=== PATIENT | female | born 1935 | race Caucasian/White ===

== ENCOUNTER 2024-04-09 11:32 | Outpatient (AMB) | payer MEDICARE, SELFPAY ==
--- NOTE | 2024-04-09 11:34 | HO.NEPHOV ---
Vital Signs 04/09/24 11:36 Height 5 ft Weight 118 lb 2 oz BMI 23.1 BP 144/64 H Blood Pressure Location Lt brachial Position Sitting Pulse 66 Pulse Source Pulse Oximeter Pulse Oximetry (%) 97 Oxygen Delivery Method Room Air Intake Visit Reasons: Abn kidney Assistant Credit Manager Required: No Accompanied by: Self / Same As Patient Allergies cefuroxime Allergy (Verified 04/09/24 11:38) Gastrointestinal Upset Medication List - Last Reconciled 04/09/24 by Jeovanny Pulido MD apremilast (Otezla) 30 mg PO BID aspirin 81 mg PO DAILY carvedilol 12.5 mg PO BID faricimab-svoa (Vabysmo) 6 mg intravitreal Q4W fluticasone furoate 50 mcg/actuation inhalation BID olmesartan-hydrochlorothiazide 40-12.5 mg 1 tab PO DAILY pravastatin 20 mg PO DAILY vit C-E-zinc uq-xoqu-ixt-zeax 250 mg-200 unit -12.5 mg-1 mg (ICaps AREDS2) caps PO BID HPI Comments Details: Xiomara is a pleasant elderly woman with a history of longstanding hypertension has been referred for evaluation of chronic kidney disease. Recent serum creatinine was 1.7 mg/dL with a EGFR about 27-30 mL/minute in hence this consultation. Overall blood pressure has been well controlled she is on olmesartan hydrochlorothiazide along with carvedilol 12.5 b.i.d.. She was recently seen by Cardiology echocardiogram showed mild LVH with grade 1 diastolic dysfunction. 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 Congestive heart failure Mixed hyperlipidemia Essential (primary) hypertension Family History Son Tongue cancer Lung cancer Son Diabetes Social History Alcohol intake: current Comment: Occasionally Patient Tobacco Use Status: Former Tobacco user Review of Systems Const Denies fever(s) and Denies weight loss Card Denies chest pain Resp Denies cough and Denies hemoptysis GI Denies abdominal pain, Denies diarrhea and Denies nausea Musc Denies back pain Neuro Denies focal weakness Physical Exam Vital Signs: Last Vital Signs Pulse 66 04/09/24 11:36 BP 144/64 H 04/09/24 11:36 Pulse Ox 97 04/09/24 11:36 Oxygen Delivery Method Room Air 04/09/24 11:36 BMI result Body Mass Index 23.1 Const General: comfortable; No acute distress Orientation/consciousness: patient oriented x3 Eyes General: appearance normal, both eyes and all related structures Visual King: normal visual king by confrontation Neck Neck: Yes supple and Yes no JVD Resp Effort & Inspection: normal respiratory effort and respiratory effort not decreased Auscultation: rhonchi Cardio Palpation: no palpable S3 and no palpable S4 Heart sounds: no rubs GI Inspection: Yes normal to inspection Palpation (GI): Soft to palpation Percussion: Yes normal to percussion Auscultation: normal bowel sounds General: Yes no CVA tenderness Back/Spine/Pelvis Back: no CVA tenderness Skin General skin exam: no petechiae and no purpura Neuro General: patient oriented x3 and no focal motor deficits Extrem General: No clubbing and No edema Results Reviewed Results Reviewed: 04/01/2024 serum creatinine 1.79 EGFR 27 mL/minute Mild anemia hemoglobin 9.1. Serum lytes normal. 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 Obstructive uropathy should be ruled out. No reason to believe she is any active glomerular nephritis or interstitial disease nevertheless this needs to be ruled out. At present blood pressure is well controlled. 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 Plan Keep her on medications Encouraged her to stay on low-sodium diet Encouraged her to increase p.o. fluid intake. Workup ordered including urine studies and renal ultrasonogram. Goal is to slow the portion disease Continue overt nephrotoxic agents. Further workup will be based on the outcome of the above baseline investigations. . Orders: Orders UA and rflx microscopic Today I10 - Essential (primary) hypertension, N18.9 - Chronic kidney disease, unspecified Total Protein Urine Random Today I10 - Essential (primary) hypertension, N18.9 - Chronic kidney disease, unspecified Basic Metabolic Panel Today I10 - Essential (primary) hypertension, N18.9 - Chronic kidney disease, unspecified US renal BI Today I10 - Essential (primary) hypertension, N18.9 - Chronic kidney disease, unspecified Creatinine Urine Today I10 - Essential (primary) hypertension, N18.9 - Chronic kidney disease, unspecified Coding Level of Care Code New Pt Level 4 (61880) Diagnoses Essential (primary) hypertension I10 CKD (chronic kidney disease) N18.9
[2024-04-09 11:36] VITALS: BP 144/64; PULSE 66; O2SAT 97; BMI 23.1
== END 2024-04-09 11:52 | disposition home or self-care (01) ==
PROVIDERS: PCP Internal Medicine; Referring Provider Internal Medicine; Visit Provider Internal Medicine Hypertension Specialist
DX: I12.9 Hypertensive chronic kidney disease with stage 1 through stage 4 chronic kidney disease, or unspecified chronic kidney disease (principal); N18.9 Chronic kidney disease, unspecified
CPT/HCPCS: 99204

== ENCOUNTER → 2024-04-09 11:32 | Outpatient (BNVA) | payer MEDICARE, SELFPAY | PROVIDERS: PCP Internal Medicine; Referring Provider Internal Medicine; Visit Provider Internal Medicine Hypertension Specialist | DX: I12.9 Hypertensive chronic kidney disease with stage 1 through stage 4 chronic kidney disease, or unspecified chronic kidney disease (principal); N18.9 Chronic kidney disease, unspecified | CPT/HCPCS: 99202 ==

== ENCOUNTER 2024-05-07 13:42 | Outpatient (AMB) | payer MEDICARE, SELFPAY ==
[2024-05-07 13:42] VITALS: BP 200/66; PULSE 62; O2SAT 99; BMI 23.0
--- NOTE | 2024-05-07 13:42 | HO.NEPHOV ---
Vital Signs 05/07/24 13:42 Height 5 ft Weight 118 lb BMI 23.0 BP 200/66 H Blood Pressure Location Rt brachial Position Sitting Pulse 62 Pulse Source Pulse Oximeter Pulse Oximetry (%) 99 Oxygen Delivery Method Room Air Intake Visit Reasons: 3-4 wk follow up/ LVM Machine Ii Trimmer Required: No Accompanied by: Self / Same As Patient Allergies cefuroxime Allergy (Verified 05/07/24 13:44) Gastrointestinal Upset Medication List - Last Reconciled 05/07/24 by Jeovanny Pulido MD apremilast (Otezla) 30 mg PO BID aspirin 81 mg PO DAILY carvedilol 12.5 mg PO BID faricimab-svoa (Vabysmo) 6 mg intravitreal Q4W fluticasone furoate 50 mcg/actuation inhalation BID olmesartan-hydrochlorothiazide 40-12.5 mg 1 tab PO DAILY pravastatin 20 mg PO DAILY vit C-E-zinc wp-lisr-uhd-zeax 250 mg-200 unit -12.5 mg-1 mg (ICaps AREDS2) caps PO BID HPI Comments Details: Xiomara is a pleasant elderly woman with a history of longstanding hypertension has been referred for evaluation of chronic kidney disease. Recent serum creatinine was 1.7 mg/dL with a EGFR about 27-30 mL/minute in hence this consultation. Overall blood pressure has been well controlled she is on olmesartan hydrochlorothiazide along with carvedilol 12.5 b.i.d.. She was recently seen by Cardiology echocardiogram showed mild LVH with grade 1 diastolic dysfunction. 05/07/24 Overall doing well. 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 Comfortable. Neck is supple. Mucosa moist. Lungs bilateral scattered rhonchi. Heart S1-S2 heard no gallop. Abdomen soft. Extremities no edema. No involuntary movements. No myoclonus. 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 No Obstructive uropathy base don ultrasound Simple cysts- NO need for further evaluation per radiology No reason to believe she is any active glomerular nephritis or interstitial disease base don the bland urine sediments At present blood pressure is well controlled. 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 Plan DC HCTZ Change Olmesartan HCT to Olmesartan ADD AMLODIPINE 5 mg QD Encouraged her to stay on low-sodium diet Encouraged her to increase p.o. fluid intake. Goal is to slow the progression of the kidney disease Continue to avoid nephrotoxic agents. Repeat Labs ordered . Orders: Orders Basic Metabolic Panel Today I10 - Essential (primary) hypertension, N18.9 - Chronic kidney disease, unspecified Medications: New amlodipine 5 mg PO DAILY 30 tabs 3RF olmesartan 20 mg PO DAILY 30 tabs 4RF Coding Level of Care Code Est Pt Level 4 (57705) Diagnoses Essential (primary) hypertension I10 CKD (chronic kidney disease) N18.9
== END 2024-05-07 14:14 | disposition home or self-care (01) ==
LOC: HO.HKAE 13:42
PROVIDERS: PCP Internal Medicine; Visit Provider Internal Medicine Hypertension Specialist
DX: I12.9 Hypertensive chronic kidney disease with stage 1 through stage 4 chronic kidney disease, or unspecified chronic kidney disease (principal); N18.4 Chronic kidney disease, stage 4 (severe)
CPT/HCPCS: 99214

== ENCOUNTER → 2024-05-07 13:42 | Outpatient (BNVA) | payer MEDICARE, SELFPAY | PROVIDERS: PCP Internal Medicine; Visit Provider Internal Medicine Hypertension Specialist | DX: I12.9 Hypertensive chronic kidney disease with stage 1 through stage 4 chronic kidney disease, or unspecified chronic kidney disease (principal); N18.9 Chronic kidney disease, unspecified | CPT/HCPCS: 99212 ==

== ENCOUNTER 2024-05-21 14:54 | Outpatient (AMB) | payer MEDICARE, SELFPAY ==
[2024-05-21 14:56] VITALS: BP 160/58; PULSE 72; O2SAT 99; BMI 23.4
--- NOTE | 2024-05-21 14:56 | HO.NEPHOV_ITS ---
Vital Signs 05/21/24 14:56 Height 5 ft Weight 120 lb BMI 23.4 BP 160/58 H Blood Pressure Location Rt brachial Position Sitting Pulse 72 Pulse Source Pulse Oximeter Pulse Oximetry (%) 99 Oxygen Delivery Method Room Air Intake Visit Reasons: CKD/ Conf Accompanied by: Self / Same As Patient Allergies cefuroxime Allergy (Verified 05/21/24 14:59) Gastrointestinal Upset Medication List - Last Reconciled 05/21/24 by Jeovanny Pulido MD amlodipine 5 mg PO DAILY apremilast (Otezla) 30 mg PO BID aspirin 81 mg PO DAILY carvedilol 12.5 mg PO BID faricimab-svoa (Vabysmo) 6 mg intravitreal Q4W fluticasone furoate 50 mcg/actuation inhalation BID olmesartan 20 mg PO DAILY pravastatin 20 mg PO DAILY vit C-E-zinc kt-rgnd-bqj-zeax 250 mg-200 unit -12.5 mg-1 mg (ICaps AREDS2) caps PO BID HPI Comments Details: Xiomara is a pleasant elderly woman with a history of longstanding hypertension has been referred for evaluation of chronic kidney disease. Recent serum creatinine was 1.7 mg/dL with a EGFR about 27-30 mL/minute in hence this consultation. Overall blood pressure has been well controlled she is on olmesartan hydrochlorothiazide along with carvedilol 12.5 b.i.d.. She was recently seen by Cardiology echocardiogram showed mild LVH with grade 1 diastolic dysfunction. 05/07/24;Overall doing well. 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 Congestive heart failure Mixed hyperlipidemia Essential (primary) hypertension Family History Son Tongue cancer Lung cancer Son Diabetes Social History Alcohol intake: current Comment: Occasionally Patient Tobacco Use Status: Former Tobacco user Physical Exam Vital Signs: Last Vital Signs Pulse 72 05/21/24 14:56 BP 160/58 H 05/21/24 14:56 Pulse Ox 99 05/21/24 14:56 Oxygen Delivery Method Room Air 05/21/24 14:56 BMI result Body Mass Index 23.4 Results Reviewed Nephrology Results: No Data to Display Assessment & Plan Assessment & Plan (1) Essential (primary) hypertension: Code(s): I10 - Essential (primary) hypertension Category: Medical (2) CKD (chronic kidney disease): Code(s): N18.9 - Chronic kidney disease, unspecified Category: Medical Plan 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 Plan Keep Olmesartan INCREASE AMLODIPINE to 10 mg QD Encouraged her to stay on low-sodium diet Encouraged her to increase p.o. fluid intake. Goal is to slow the progression of the kidney disease Continue to avoid nephrotoxic agents. Repeat Labs ordered before next visit . Medications: Changed From amlodipine 5 mg PO DAILY 30 tabs 3RF To amlodipine 10 mg PO DAILY 30 tabs 3RF Coding Level of Care Code Est Pt Level 4 (81454) Diagnoses Essential (primary) hypertension I10 CKD (chronic kidney disease) N18.9
== END 2024-05-21 15:13 | disposition home or self-care (01) ==
PROVIDERS: PCP Internal Medicine; Visit Provider Internal Medicine Hypertension Specialist
DX: I12.9 Hypertensive chronic kidney disease with stage 1 through stage 4 chronic kidney disease, or unspecified chronic kidney disease (principal); N18.4 Chronic kidney disease, stage 4 (severe)
CPT/HCPCS: 99214

== ENCOUNTER → 2024-05-21 14:54 | Outpatient (BNVA) | payer MEDICARE, SELFPAY | PROVIDERS: PCP Internal Medicine; Visit Provider Internal Medicine Hypertension Specialist | DX: I12.9 Hypertensive chronic kidney disease with stage 1 through stage 4 chronic kidney disease, or unspecified chronic kidney disease (principal); N18.4 Chronic kidney disease, stage 4 (severe); Z79.899 Other long term (current) drug therapy | CPT/HCPCS: 99212 ==

== ENCOUNTER 2024-09-10 15:24 | Outpatient (AMB) | payer MEDICARE, SELFPAY ==
[2024-09-10 15:24] VITALS: BP 152/62; PULSE 62; O2SAT 97; BMI 23.0
--- NOTE | 2024-09-10 15:24 | HO.NEPHOV_ITS ---
Vital Signs 09/10/24 15:24 09/10/24 15:33 Height 5 ft Weight 118 lb BMI 23.0 BP 152/62 H 140/60 H Blood Pressure Location Rt brachial Rt brachial Position Sitting Sitting Pulse 62 Pulse Source Pulse Oximeter Pulse Oximetry (%) 97 Oxygen Delivery Method Room Air Intake Visit Reasons: CKD/3 Month Follow Up/ Conf Dispensing Optician Apprentice Required: No Accompanied by: Self / Same As Patient Allergies cefuroxime Allergy (Verified 09/10/24 15:26) Gastrointestinal Upset Medication List - Last Reconciled 09/10/24 by Jeovanny Pulido MD amlodipine 10 mg PO DAILY apremilast (Otezla) 30 mg PO BID aspirin 81 mg PO DAILY baclofen 10 mg PO DAILY carvedilol 12.5 mg PO BID faricimab-svoa (Vabysmo) 6 mg intravitreal Q4W fluticasone furoate 50 mcg/actuation inhalation BID olmesartan 20 mg PO DAILY pravastatin 20 mg PO DAILY vit C-E-zinc uy-wnnn-ahr-zeax 250 mg-200 unit -12.5 mg-1 mg (ICaps AREDS2) caps PO BID HPI Comments Details: Xiomara is a pleasant elderly woman with a history of longstanding hypertension has been referred for evaluation of chronic kidney disease. Recent serum creatinine was 1.7 mg/dL with a EGFR about 27-30 mL/minute in hence this consultation. Overall blood pressure has been well controlled she is on olmesartan hydrochlorothiazide along with carvedilol 12.5 b.i.d.. She was recently seen by Cardiology echocardiogram showed mild LVH with grade 1 diastolic dysfunction. 05/07/24;Overall doing well. 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 Congestive heart failure Mixed hyperlipidemia Essential (primary) hypertension Family History Son Tongue cancer Lung cancer Son Diabetes Social History Alcohol intake: current Comment: Occasionally Patient Tobacco Use Status: Former Tobacco user Physical Exam Vital Signs: Last Vital Signs Pulse 62 09/10/24 15:24 BP 140/60 H 09/10/24 15:33 Pulse Ox 97 09/10/24 15:24 Oxygen Delivery Method Room Air 09/10/24 15:24 BMI result Body Mass Index 23.0 Results Reviewed Nephrology Results: No Data to Display Assessment & Plan Assessment & Plan (1) Essential (primary) hypertension: Code(s): I10 - Essential (primary) hypertension Category: Medical (2) CKD (chronic kidney disease): Code(s): N18.9 - Chronic kidney disease, unspecified Category: Medical Plan Elderly woman with stage IIIB CKD in a setting of longstanding hypertension. 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 Plan Keep Olmesartan & AMLODIPINE to 10 mg QD Encouraged her to stay on low-sodium diet Encouraged her to increase p.o. fluid intake. Goal is to slow the progression of the kidney disease Continue to avoid nephrotoxic agents. . Orders: Orders Complete Blood Count Auto Diff 3 Months I10 - Essential (primary) hypertension, N18.9 - Chronic kidney disease, unspecified Basic Metabolic Panel 3 Months I10 - Essential (primary) hypertension, N18.9 - Chronic kidney disease, unspecified Coding Level of Care Code Est Pt Level 4 (00180) Diagnoses Essential (primary) hypertension I10 CKD (chronic kidney disease) N18.9
[2024-09-10 15:33] VITALS: BP 140/60
--- OUTSIDE RECORDS SUMMARY | 2024-09-10 17:22 | XMS_ITS ---
Author Name [facility] Organization Unknown Results Test Name/Text Value Interpretation Date Range Source CALPROTECTIN 118.3 Above high normal [id number] [facility] URATE SERPL [facility] 10.9mg/dL Above high normal [id number] 2. 5 - 7 [facility] CALCIUM SERPL [facility] 9.5mg/dL Normal [id number] 8.4 - 10 .2 [facility] ANION GAP SERPL [facility] 14mmol/L Normal [id number] 5 - 14 [facility] Glomerular filtration rate/1.73 sq M. predicted 25 Below low normal [id number] 60 - [facility] HCO3 SER [facility] 26mmol/L Normal [id number] 24 - 32 [facility] AST SERPL [facility] 11U/L Normal [id number] 5 - 40 [facility] BUN SERPL [facility] 45mg/dL Above high normal [id number] 7 - 17 [facility] CHLORIDE SERPL [facility] 100mmol/L Normal [id number] 98 - 10 7 [facility] ALBUMIN SERPL BCG [facility] 3.9g/dL Normal [id number] 3.5 - 5 [facility] ALP SERPL-[facility] 86U/L Normal [id number] 34 - 104 [facility] ALT SERPL [facility] 9U/L Normal [id number] 7 - 52 [facility] CREAT SERPL [facility] 1.9mg/dL Above high normal [id number] 0. 5 - 1 [facility] SODIUM SERPL [facility] 140mmol/L Normal [id number] 135 - 145 [facility] PROT SERPL [facility] 8.1g/dL Normal [id number] 6.4 - 8.5 C [facility] BILIRUB SERPL [facility] 0.4mg/dL Normal [id number] 0.3 - 1 [facility] GLUCOSE P FAST SERPL [facility] 102mg/dL Above high normal [id number] 70 - 99 [facility] POTASSIUM SERPL [facility] 4.2mmol/L Normal [id number] 3.5 - 5.1 [facility] DIFFERENTIAL TYPE AUTOMATED Normal [id number] [facility] PLATELET NO. BLD AUTO 369K/uL Normal [id number] 150 - 450 [facility] RBC NO. BLD AUTO 3.63M/uL Below low normal [id number] 4.2 - 5.4 [facility] LYMPHOCYTES NO. BLD AUTO 1.1K/uL Normal [id number] 1 - 3.2 [facility] EOSINOPHIL NO. BLD AUTO 0.2K/uL Normal [id number] 0 - 0.5 [facility] MCH RBC QN AUTO 27.9pg Normal [id number] 25 - 33 [facility] MCHC RBC AUTO MCNC 32.9g/dL Normal [id number] 32 - 36 [facility] MONOCYTES NFR BLD AUTO 8.3% Normal [id number] 2 - 12 [facility] LYMPHOCYTES NFR BLD AUTO 12% Below low normal [id number] 20 - 48 [facility] EOSINOPHIL NFR BLD AUTO 1.8% Normal 0 - 6 [facility] HGB BLD MCNC 10.2g/dL Below low normal [id number] 12.5 - 16 [facility] NEUTROPHILS NO. BLD AUTO 6.8K/uL Normal [id number] 1. 8 - 7.8 [facility] WBC NO. BLD AUTO 8.8K/uL Normal [id number] 4 - 10.5 [facility] BASOPHILS NFR BLD AUTO 0.8% Normal 0 - 2 [facility] MONOCYTES NO. BLD AUTO 0.7K/uL Normal [id number] 0 - 0.8 [facility] MCV RBC AUTO 84.9fL Normal [id number] 78 - 100 [facility] NEUTROPHIL[facility] NFR BLD AUTO 77.1% Above high normal [id number] 44 - 74 [facility] BASOPHILS IN BLOOD BY AUTOMATED COUNT 0.1K/uL Normal [id number] 0 - 0.2 [facility] PMV BLD AUTO 10.8fL Normal [id number] 7.4 - 11.4 [facility] RDW RBC AUTO RTO 14% Normal [id number] 12.1 - 16. 2 [facility] HCT VFR BLD AUTO 30.8% Below low normal [id number] 37 - 47 [facility] History of Medication Use Medication Directions Dispensed Refills Start Date End Date Stat us pravastatin (PRAVACHOL) tablet 20 mg TAKE 1 TABLET BY MOUTH ONCE DAILY 03/15/2016 active olmesartan-hydrochlor othiazide (BENICAR HCT) 40-12.5 MG per tablet Take 1 tablet by mouth daily. 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
--- OUTSIDE RECORDS SUMMARY | 2024-09-10 17:22 | XMS_ITS | Clinical Summary ---
Author Organization [facility] it Address [address] [place] [address] Care Team Providers Care Survey And Mapping Technician Name Role Phone Abdirahman Schafer MD Primary Care Provider [phone] Surgical History Surgery Date Site/Laterality Comments TUBAL LIGATION PROCEDURE:TUBAL LIGATION BLADDER TUMOR EXCISION 10/24/2017 N/A PROCEDURE:BLADDER TUMOR EXCISION;COMMENT:Procedure: TRANSURETHRAL RESECTION OF BLADDER TUMOR INSTILLATION MITOMYCIN; Surgeon: Lisa Rashid MD; Location: 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 Urinary tract infection DX:Urina ry tract infection;COMMENT:08/2017 Lesion of bladder DX:Lesion of b ladder Family History Medical History Relation Name Comments Stroke Father Heart disease Neg Hx Relation Name Status Comments Father Mother Social History Tobacco Use Types Packs/Day Years Used Date Smoking Tobacco: Former Smokeless Tobacco: Never Alcohol Use Standard Drinks/Week Comments No 0 (1 standard drink = 0.6 oz pur e alcohol) Sex and Gender Information Value Date Recorded Sex Assigned at Not on file Gender Identity Not on file Sexual Orientation Not on file Obstetrics History Last Filed Vital Signs Vital Sign Reading Time Taken Comments Blood Pressure 132/74 03/04/2024 1:05 PM EDT Pulse 72 03/04/2024 1:05 PM EDT Temperature - - Respiratory Rate - - Oxygen Saturation - - Inhaled Oxygen Concentration - - Weight 52.6 kg (116 lb) 03/04/2024 1:05 PM EDT Height 149.9 cm (4' 11 ) 03/04/2024 1:05 PM EDT Body Mass Index 23.43 03/04/2024 1:05 PM EDT Plan of Treatment Upcoming Encounters Date Type Department Care Team (Late st Contact Info) Description 03/10/2025 1:00 PM EDT Office Visit [facility] [place] [address] [address] Wanda Enriquez MD [address] [place] [address] Health Maintenance Due Date Last Done Comments COVID-19 Vaccine (#1) 1942 Pneumococcal Vaccine: 65+ Ye ars (1 of 2 - PCV) 1943 DTaP,Tdap,and Td Vaccines (1 - Tdap) 1956 Zoster Vaccines (1 of 2) 1956 RSV Immunization Patients 60 + Years Old (1 - 1-dose 75+ series) 2012 Cholesterol Screening (Lipid Panel) 07/21/2022 Depression Screening 07/21/2022 Falls Risk Assessment 07/21/2022 Osteoporosis Screening (Bone Density Screening) 07/21/2022 Social Influencers of Health Screening 07/21/2022 Influenza Vaccine (#1) 2024 Hypertension/CHF/CAD Annual BMP Blood Test 08/27/2024 08/27/2023 HIB Vaccines Aged Out No longer eligi ble based on patient's age to complete this topic HPV Vaccines Aged Out No longer eligi ble based on patient's age to complete this topic Hepatitis A Vaccines Aged Out No long er eligible based on patient's age to complete this topic Hepatitis B Vaccines Aged Out No long er eligible based on patient's age to complete this topic IPV Vaccines Aged Out No longer eligi ble based on patient's age to complete this topic MMR Vaccines Aged Out No longer eligi ble based on patient's age to complete this topic Meningococcal ACWY Vaccine Aged Out N o longer eligible based on patient's age to complete this topic RSV Immunization Patients Un myra 20 months Aged Out No longer eligible b ased on patient's age to complete this topic Varicella Vaccines Aged Out No longer eligible based on patient's age to complete this topic Care Teams Survey And Mapping Technician Relationship Specialty Start Date End Date Abdirahman Schafer MD [address] [place] [id number] PCP - General Internal Medicine 08/10/17
--- OUTSIDE RECORDS SUMMARY | 2024-09-10 17:22 | XMS_ITS | Clinical Summary ---
Author Organization [facility] Address [address] [place] [id number] Care Team Providers Care Digital Artist Name Role Phone Abdirahman Schafer MD Unavailable [phone] Allergies No known active allergies Social History Tobacco Use Types Packs/Day Years Used Date Smoking Tobacco: Never Assessed Sex and Gender Information Value Date Recorded Sex Assigned at Female 08/20/2022 12:58 PM EST Gender Identity Female 08/20/2022 12:58 PM EST Sexual Orientation Heterosexual (straight) 08/20 12:58 PM EST Last Filed Vital Signs Vital Sign Reading Time Taken Comments Blood Pressure 180/62 08/20/2022 3:55 PM EST Pulse 62 08/20/2022 3:05 PM EST Temperature 36.3 ??C (97.4 ??F) 08/20/2022 11:[address] Respiratory Rate 18 08/20/2022 3:05 PM EST Oxygen Saturation 95% 08/20/2022 3:05 PM EST Inhaled Oxygen Concentration - - Weight - - Height - - Body Mass Index - - Plan of Treatment Health Maintenance Due Date Last Done Comments DTaP/Tdap/Td Vaccines (1 - Tdap) 1956 Pneumococcal Vaccines 50+ (1 of 1 - PCV) 1987 Zoster (Shingles) Vaccine (1 of 2) 1987 DXA Bone Density (Females,Ag es 65 and older) 2002 RSV Vaccine 60 years and old er and Patients (1 - 1-dose 75+ series) 2012 Influenza Vaccine 03/13/2024 COVID-19 Vaccine (2023-2 5 season) 2024 Hepatitis B Vaccines Aged Out No long er eligible based on patient's age to complete this topic Care Teams Digital Artist Relationship Specialty Start Date End Date Abdirahman Schafer MD [address] [place], [place] [id number] PCP - [employer] Medicare Attributed 01/12/20
--- OUTSIDE RECORDS SUMMARY | 2024-09-10 17:22 | XMS_ITS | Clinical Summary ---
Author Organization [facility] Address [address] [place] [address] Care Team Providers Care Social Work Faculty Member Name Role Phone Abdirahman Schafer MD Primary Care Provider [phone] Allergies No known active allergies Medications Medication Sig Dispensed Refills Start Date End Date Status pravastatin (PRAVACHOL) tablet 20 mg TAKE 1 TABLET BY MOUTH ONCE DAILY 30 tablet 3 03/15/2016 Active Otezla 30 MG TABS 2 (two) times a day. 0 02/07/2021 Active Multiple Vitamins-Minerals (PRESERVISION AREDS 2 PO) Take by mouth 2 (two) times a day. 0 Active aspirin EC 81 MG tablet Take 1 tablet (81 mg total) by mouth daily. 0 Active olmesartan-hydrochlor othiazide (BENICAR HCT) 40-12.5 MG per tabletIndications:Hyp ertension, unspecified type Take 1 tablet by mouth daily. 30 tablet 1 01/04/2023 Active carvedilol (COREG) 12.5 MG tablet Take 1 tablet (12.5 mg total) by mouth 2 (two) times a day with meals. 180 tablet 3 04/24/2024 Active Active Problems Problem Noted Date Diagnosed Date Palpitations 10/20/2021 Overview: Images from the original note were not included. 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 Adm to [facility] 03/09/22--atypical chest pain barbara--normal perfustion 67% EF monitor--shor run of multifocal tachycardia with variable conduction Intermittent mobitz I blovk Echo 06/14/22--normal study nl LA index 28 zio--05/23/22--rare PVC's and PAC's, HR 28--110, mobitz I second degree av block, no atrial fibrillation Absence of bladder continence 06/07/2018 Microscopic hematuria 10/07/2017 Bladder mass 10/07/2017 Urinary tract infection with hematuria 8 Retention of urine 08/16/2017 Voiding dysfunction 08/16/2017 Cystocele with small rectocele and uterine desce nt 08/16/2017 Family History Medical History Relation Name Comments Stroke Father Heart disease Neg Hx Relation Name Status Comments Father Mother Social History Tobacco Use Types Packs/Day Years Used Date Smoking Tobacco: Former Passive Smoke Exposure: Past Smokeless Tobacco: Never Tobacco Cessation:Counseling Given: Not Answered Comments:quit 2005 Alcohol Use Standard Drinks/Week Comments No 0 (1 standard drink = 0.6 oz pur e alcohol) Sex and Gender Information Value Date Recorded Sex Assigned at Female 03/10/2021 1:20 PM EDT Gender Identity Not on file Sexual Orientation Not on file Job Start Date Occupation Industry Not on file Not on file Not on file Last Filed Vital Signs Vital Sign Reading Time Taken Comments Blood Pressure 132/74 03/04/2024 1:05 PM EDT Pulse 72 03/04/2024 1:05 PM EDT Temperature 37.2 ??C (98.9 ??F) 08/28/2022 2:28 PM ES T Respiratory Rate 18 10/24/2017 1:46 PM EDT Oxygen Saturation 99% 03/04/2024 1:05 PM EDT Inhaled Oxygen Concentration - - Weight 52.6 kg (116 lb) 03/04/2024 1:05 PM EDT Height 149.9 cm (4' 11 ) 03/04/2024 1:05 PM EDT Body Mass Index 23.43 03/04/2024 1:05 PM EDT Plan of Treatment Health Maintenance Due Date Last Done Comments COVID-19 Vaccine (#1) 1942 Pneumococcal Vaccine (1 of 2 - PCV) 1943 Depression Screening 1949 Preventative Health Evaluation 1955 DTap / Tdap / Td (1 - Tdap) 1956 Shingrix-Zoster Vaccine (1 of 2) 1956 Fall Risk Assessment 2002 Osteoporosis Screening (DEXA Scan) 2002 RSV Adult > 60+ Yrs or Pregn ant (1 - 1-dose 75+ series) 2012 Influenza Vaccine (#1) 2024 Hepatitis B Vaccines Aged Out No long er eligible based on patient's age to complete this topic RSV Ped < 20 months Aged Out No longe r eligible based on patient's age to complete this topic Advance Directives For more information, please contact: [phone] Documents on File Type Date Recorded 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
== END 2024-09-10 15:36 | disposition home or self-care (01) ==
PROVIDERS: PCP Internal Medicine; Visit Provider Internal Medicine Hypertension Specialist
DX: I12.9 Hypertensive chronic kidney disease with stage 1 through stage 4 chronic kidney disease, or unspecified chronic kidney disease (principal); N18.9 Chronic kidney disease, unspecified
CPT/HCPCS: 99214

== ENCOUNTER → 2024-09-10 15:24 | Outpatient (BNVA) | payer MEDICARE, SELFPAY | PROVIDERS: PCP Internal Medicine; Visit Provider Internal Medicine Hypertension Specialist | DX: I12.9 Hypertensive chronic kidney disease with stage 1 through stage 4 chronic kidney disease, or unspecified chronic kidney disease (principal); N18.9 Chronic kidney disease, unspecified | CPT/HCPCS: 99212 ==

== ENCOUNTER 2024-12-24 14:29 | Outpatient (AMB) | payer MEDICARE, MEDICAID, SELFPAY ==
[2024-12-24 14:29] VITALS: BP 132/52; PULSE 72; O2SAT 97
--- NOTE | 2024-12-24 14:29 | HO.NEPHOV_ITS ---
Vital Signs 12/24/24 14:29 Height 5 ft Weight 4.198 oz BMI 0.1 BP 132/52 L Blood Pressure Location Rt brachial Position Sitting Pulse 72 Pulse Source Pulse Oximeter Pulse Oximetry (%) 97 Oxygen Delivery Method Room Air Intake Visit Reasons: 4mon follow-up w/labs Conf Social Service Technician Required: No Accompanied by: Self / Same As Patient Allergies cefuroxime Allergy (Verified 12/24/24 14:32) Gastrointestinal Upset Medication List - Last Reconciled 12/24/24 by Jeovanny Pulido MD amlodipine 10 mg PO DAILY apremilast (Otezla) 30 mg PO BID aspirin 81 mg PO DAILY baclofen 10 mg PO DAILY carvedilol 12.5 mg PO BID faricimab-svoa (Vabysmo) 6 mg intravitreal Q4W fluticasone furoate 50 mcg/actuation inhalation BID olmesartan 20 mg PO DAILY pravastatin 20 mg PO DAILY vit C-E-zinc zc-nwjf-wgk-zeax 250 mg-200 unit -12.5 mg-1 mg (ICaps AREDS2) caps PO BID HPI Comments Details: Xiomara is a pleasant elderly woman with a history of longstanding hypertension has been referred for evaluation of chronic kidney disease. Recent serum creatinine was 1.7 mg/dL with a EGFR about 27-30 mL/minute in hence this consultation. Overall blood pressure has been well controlled she is on olmesartan hydrochlorothiazide along with carvedilol 12.5 b.i.d.. She was recently seen by Cardiology echocardiogram showed mild LVH with grade 1 diastolic dysfunction. 05/07/24;Overall doing well. Feels anxious 05/21/24;Tolerating Amlodipine;BP is better 12/24/24 89-year-old female presenting with pedal edema. She reports that her ankles and legs have been swollen for some time, a condition seemingly worsened by sitting and standing for long periods. Although she does not experience pain, she notices the swelling. There's a possibility that her medication, amlodipine, is contributing to this condition, although it helps manage her essential hypertension. Her dietary sodium intake is minimal, and she does not attribute the swelling to increased salt consumption. The patient's kidney function appears stable based on her past tests, which contributes to her satisfaction with her current medical status [facility] Medical History Low back pain Dizziness and giddiness Insomnia Eczema Malignant neoplasm of bladder Nonexudative age-related macular degeneration Congestive heart failure Mixed hyperlipidemia Essential (primary) hypertension Family History Son Tongue cancer Lung cancer Son Diabetes Social History Alcohol intake: current Comment: Occasionally Patient Tobacco Use Status: Former Tobacco user Physical Exam Vital Signs: BMI result Body Mass Index 0.1 Awake. Comfortable. Neck is supple. Mucosa moist. Lungs bilateral scattered rhonchi. Heart S1-S2 heard no gallop. Abdomen soft. Extremities no edema. No involuntary movements. No myoclonus. Results Reviewed Results Reviewed: 04/01/2024 serum creatinine 1.79 EGFR 27 mL/minute Mild anemia hemoglobin 9.1. Serum lytes normal. 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 No Obstructive uropathy base don ultrasound Simple cysts- No need for further evaluation per radiology No reason to believe she is any active glomerular nephritis or interstitial disease based on the bland urine sediments Blood pressure is acceptable Creatinine is down to 1.17 and eGFR of 45 ml/mt Anemia is most likely due to underlying erythropoietin deficiency versus others. HCT is stable Plan Keep Olmesartan & AMLODIPINE to 10 mg QD Encouraged her to stay on low-sodium diet Encouraged her to increase p.o. fluid intake. Goal is to slow the progression of the kidney disease Continue to avoid nephrotoxic agents. . Orders: Orders Basic Metabolic Panel 5 Months N18.9 - Chronic kidney disease, unspecified Complete Blood Count no Diff 5 Months N18.9 - Chronic kidney disease, unspecified Medications: Refilled amlodipine 10 mg PO DAILY 90 tabs 3RF olmesartan 20 mg PO DAILY 90 tabs 4RF Coding Level of Care Code Est Pt Level 4 (08807) Diagnoses Essential (primary) hypertension I10 CKD (chronic kidney disease) N18.9
--- OUTSIDE RECORDS SUMMARY | 2024-12-24 14:34 | XMS_ITS | Clinical Summary ---
Author Organization [facility] Address [address] [place] [address] Care Team Providers Care Qc Lab Technician Name Role Phone Abdirahman Schafer MD Primary Care Provider [phone] Allergies No known active allergies Medications vit C/E/Zn/coppr/lut ein/zeaxan (PRESERVISION AREDS-2 ORAL) Take by mouth 2 (two) times a day. Active pravastatin (PRAVACHOL) 20 mg tablet Take 1 tablet (20 mg total) by mouth 1 (one) time each day. 03/15/2016 Active olmesartan-hydro CHLOROthiazide (BENICAR HCT) 40-12.5 mg per tablet Take 1 tablet by mouth 1 (one) time each day. 01/04/2023 Active carvediloL (COREG) 12.5 mg tablet Take 1 tablet (12.5 mg total) by mouth 2 (two) times a day with meals. 04/24/2024 Active aspirin 81 mg EC tablet Take 1 tablet (81 mg total) by mouth 1 (one) time each day. Active apremilast (Otezla) 30 mg tablet 2 (two) times a day. 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 Adm to [facility] 03/09/22--atypical chest pain barbara--normal perfustion 67% EF monitor--shor run of multifocal tachycardia with variable conduction Intermittent mobitz I blovk Echo 06/14/22--normal study nl LA index 28 zio--05/23/22--rare PVC's and PAC's, HR 28--110, mobitz I second degree av block, no atrial fibrillation Absence of bladder continence 06/07/2018 Bladder mass 10/07/2017 Microscopic hematuria 10/07/2017 Urinary tract infection with hematuria 8 Cystocele with small rectocele and uterine desce nt 08/16/2017 Voiding dysfunction 08/16/2017 Retention of urine 08/16/2017 Surgical History Surgery Date Site/Laterality Comments TUBAL LIGATION PROCEDURE:TUBAL LIGATION BLADDER TUMOR EXCISION 10/24/2017 N/A PROCEDURE:BLADDER TUMOR EXCISION;COMMENT:Procedure: TRANSURETHRAL RESECTION OF BLADDER TUMOR INSTILLATION MITOMYCIN; Surgeon: Lisa Rashid MD; Location: [facility]; Service: Urology; Laterality: N/A; Medical History Medical History Date Comments Hypertension DX:Hypertension Arthritis DX:Arthritis Bronchitis DX:Bronchitis Bleeding tendency (CMS/HCC V24) DX:Bleeding tendency (HCC) Hyperlipidemia DX:Hyperlipidemi a URI (upper [...] drink = 0.6 oz pur e alcohol) Comments Unknown Sex and Gender Information Value Date Recorded Sex Assigned at Not on file Legal Sex Female 10:54 AM EST Gender Identity Not on file Sexual Orientation [...] Description 03/10/2025 1:00 PM EDT Office Visit [facility] Cardiology - [place] [address] [id number] Wanda Enriquez MD [address] [place] [address] Health Maintenance Due Date Last Done Comments COVID-19 Vaccine (#1) 1942 DTaP,Tdap,and Td Vaccines (1 - Tdap) 1956 Pneumococcal Vaccine: 50+ Years (1 of 1 - PCV) 1987 Zoster Vaccines (1 of 2) 1987 RSV Immunization Adult Patients (1 - 1-dose 75+ series) 2012 Depression Screening 07/21/2022 Falls Risk Assessment 07/21/2022 Osteoporosis Screening (Bone Density Screening) 07/21/2022 Social Influencers of Health Screening 07/21/2022 Cholesterol Screening (Lipid Panel) 01/19/2024 01/18/2019 Hypertension/CHF/CAD Annual BMP Blood Test 08/27/2024 08/27/2023, 08/27/2023 Influenza Vaccine (Season Ended) 2025 HIB Vaccines Aged Out No longer eligi [...] patient's age to complete this topic Meningococcal B Vaccine Aged Out No l onger eligible based on patient's age to complete this topic RSV Immunization Patients Under 20 months Aged Out No longer eligible b ased on patient's age to complete this topic Varicella Vaccines Aged Out No longer eligible based on patient's age to complete this topic Procedures Procedure Name Priority Date/Time Associated Diagnosis Comments ANNUAL BMP BLOOD TEST Routine 08/27/2023 LIPID PANEL Routine 01/18/2019 from Last 3 Months or Most Recently Relevant to Health Maintenance Results * Annual BMP Blood Test (08/27/2023) Annual BMP Blood Test Abstracted Historical Provider HEALTH MAINTENANCE Final Result * (ABNORMAL) Lipid panel (01/18/2019) LDL/HDL Ratio 3 Triglycerides 129 <=150 mg/dL Cholesterol 197 <=200 mg/dL HDL 59 >=50 mg/dL LDL Cholesterol 114(A) <=100 mg/dL Blood Venous blood specimen / Unknown Historical Provider LAB BLOOD ORDERABLES Zainab l Result from Last 3 Months or Most Recently Relevant to Health Maintenance Care Teams Qc Lab Technician Relationship Specialty Start Date End Date Abdirahman Schafer MD [address] [place] [address] PCP - General Internal Medicine 08/10/17
--- OUTSIDE RECORDS SUMMARY | 2024-12-24 14:34 | XMS_ITS | Clinical Summary ---
Author Organization [facility] Address [address] [place] [address] Care Team Providers Care Pot Press Operator Name Role Phone Abdirahman Schafer MD Unavailable [phone] Allergies No known active allergies Social History Tobacco Use Types Packs/Day Years Used Date Smoking Tobacco: Never Assessed Comments No Sex and Gender Information Value Date Recorded Sex Assigned at Female 08/20/2022 12:58 PM EST Legal Sex Female 2:56 PM EDT Gender Identity Female 08/20/2022 12:58 PM EST [...] Patients (1 - 1-dose 75+ series) 2012 COVID-19 Vaccine (2023-2 5 season) 2024 Influenza Vaccine 03/13/2025 Hepatitis B Vaccines Aged Out No long er eligible based on patient's age to complete this topic Insurance [employer] MEDICARE [facility] Care Teams Pot Press Operator Relationship Specialty Start Date End Date Abdirahman Schafer MD [address] [place] [address] PCP - [employer] Medicare Attributed 01/12/20
--- OUTSIDE RECORDS SUMMARY | 2024-12-24 14:34 | XMS_ITS | Clinical Summary ---
Author Organization [facility] Address [address] [place] [address] Care Team Providers Care Olive Grader Name Role Phone Abdirahman Schafer MD Primary Care Provider [phone] Allergies No known active allergies Medications Medication [...] bladder followed by Dr Rashid Adm to [facility] 03/09/22--atypical chest pain barbara--normal perfustion 67% [...] Date Last Done Comments COVID-19 Vaccine (#1) 02/15/1936 Depression Screening 1949 Preventative Health Evaluation 1955 DTap / Tdap / Td (1 - Tdap) 1956 Shingrix-Zoster Vaccine (1 of 2) 1987 Fall Risk Assessment 2002 Osteoporosis Screening (DEXA Scan) 2002 Pneumococcal Vaccine (1 of 1 - PCV) 2002 RSV Adult > 60+ Yrs or Pregn ant (1 - 1-dose 75+ series) 2012 Influenza Vaccine (#1) 2024 Hepatitis B Vaccines Aged Out No long er eligible based on patient's age to complete this topic RSV Ped < 20 months Aged Out No longe r eligible based on patient's age to complete this topic Advance Directives For more information, please contact: [phone] Documents on File Type Date Recorded 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
--- OUTSIDE RECORDS SUMMARY | 2024-12-24 14:34 | XMS_ITS | Data Portability ---
Author Organization [place] [facility] Bhupinder Griffiths [place] Address [address] [place] [address] Care Team Providers Care Post Anesthesia Room Nurse Name Role Phone TREVOR LYNN Primary Care Provider TREVOR LYNN Referring Provider [phone] Assessment Encounter Date Assessment Date Assessment LastModified by Organization Details LastModified Time 09/22/2024 09/22/2024 HPI 89yo female presents to the office for evaluation of chronic low back pain of many years worsened without precipitating event last February. She saw her PCP at the time who ordered xrays. Today she reports constant right sided low back ache with intermittent radiation to the right thigh. She has treated with a variety of anti-inflammatories , muscle relaxers and steroids over the years. She is currently using tramadol, baclofen and just finished a steroid. She denies leg wakeness, fatigue or heaviness. Denies falls. Denies saddle anesthesia. Denies bowel or bladder incontinence. Denies fevers, chills, or unexplained weight loss. Radiographs of the lumbar spine from [facility] dated 03/12/24 demonstrate diffuse moderate to severe degenerative changes including severe facet arthrosis. Dextroscoliosis and grade 1 spondylolisthesis at L4-L5 and L1-2 radiologist noted as stable compared to prior imaging in October 2022. EXAM Constitutional: appears well developed, in no acute distress. She moves well. Back: Inspection of the thoracolumbar spine is unremarkable. Scoliosis/kyphosis. Nontender to palpation over midline thoracolumbar spine or paraspinal musculature. Nontender to palpation over b/l SI joints. Neurologic: Sensation grossly intact to light touch in bilateral lower extremities. 5/5 strength with hip flexion, knee flexion/extension, dorsi/plantar flexion, and EHL bilaterally. Non-tender, no palpable masses bilaterally. Negative straight leg raise bilaterally. Normal tone in all 4 extremities. Skin: skin intact PLAN 89yo female with chronic lumbar spondylosis. We discussed this condition and treatment options at length including continued conservative care, injection therapy and surgical intervention. We discussed the importance of avoiding noxious spine activities, avoiding repetitive bending, lifting, twisting. She will trial a home exercise program. She will continue with analgesics as needed as directed by her PCP. The patient will follow up with us on an as-needed basis. Patient was seen and evaluated by Rene Burroughs PA-C in indirect conjunction with Edil Segura MD. He agrees with history, physical examination, tests/diagnostic imaging, and treatment plan. Not available 09/28/2024 20:51:17 Plan of Treatment Reminders Order Date Submit Date Provider Last Modified By Organization Details Last Modified Time Details Appointments None record ed. Lab None record ed. Referral None record ed. Procedures None record ed. Surgeries None record ed. Imaging None record ed. Medication Orders None record ed. Patient TargetsNo targets recorded. Patient Instructions Encounter Date Encounter Id Patient Instructions Last Modified By Organization Details Last Modified Time 09/22/2024 [id number] low back pain: exercises Not available 09/22/2024 10:17:23 Reason for Referral None Reported. Problems Name Problem SNOMED Code Status Onset Date Resolution Date Notes Provider Name and Address Organization Details Recorded Time Chronic low back pain [id number] Active 025 RENE BURROUGHS PA-C [address], [place], [address] , [place] [facility] [place], 5 10:17:06 Problem Notes None recorded. Medical Equipment None Reported. Medications Name Sig Start Date Stop Date Status Note LastModified by Organization Details LastModified Time cyclobenzapri ne 10 mg tablet TAKE ONE TABLET BY MOUTH THREE TIMES DAILY active Not Available Not Available No t Available carvedilol 12.5 mg tablet TAKE ONE TABLET BY MOUTH TWICE DAILY WITH MEALS active Not Available Not Available No t Available azithromycin 250 mg tablet TAKE 2 TABLETS BY MOUTH ON DAY 1, THEN TAKE 1 TABLET DAILY ON DAYS 2-5 active Not Available Not Available No t Available tizanidine 4 mg tablet TAKE ONE TABLET BY MOUTH THREE TIMES DAILY active Not Available Not Available No t Available amoxicillin 250 mg-potassium clavulanate 62.5 mg/5 mL oral suspension TAKE 10 ML BY MOUTH TWICE DAILY FOR SEVEN DAYS AND discard remainder active Not Available Not Available No t Available meloxicam 15 mg tablet TAKE ONE TABLET BY MOUTH DAILY active Not Available Not Available No t Available amlodipine 5 mg tablet TAKE ONE TABLET BY MOUTH DAILY active Not Available Not Available No t Available tramadol 50 mg tablet TAKE ONE TABLET BY MOUTH TWICE DAILY NEEDED active Not Available Not Available No t Available baclofen 10 mg tablet TAKE ONE TABLET BY MOUTH EVERY EVENING active Not Available Not Available No t Available amlodipine 10 mg tablet TAKE ONE TABLET BY MOUTH DAILY active Not Available Not Available No t Available dexamethasone 2 mg tablet TAKE TWO TABLETS BY MOUTH THREE TIMES DAILY active Not Available Not Available No t Available dexamethasone 4 mg tablet TAKE ONE TABLET BY MOUTH THREE TIMES DAILY WITH FOOD active Not Available Not Available No t Available pravastatin 20 mg tablet TAKE ONE TABLET BY MOUTH EVERY DAY active Not Available Not Available No t Available zolpidem 5 mg tablet TAKE ONE TABLET BY MOUTH AT BEDTIME active Not Available Not Available No t Available colchicine 0.6 mg tablet TAKE ONE TABLET BY MOUTH THREE TIMES DAILY active Not Available Not Available No t Available celecoxib 100 mg capsule TAKE ONE CAPSULE EVERY MORNING with food active Not Available Not Available No t Available fluticasone propionate 50 mcg/actuation nasal spray,suspens ion Instill TWO SPRAYS in each nostril ONCE a DAY active Not Available Not Available N ot Available amoxicillin 875 mg-potassium clavulanate 125 mg tablet TAKE ONE TABLET BY MOUTH TWICE DAILY active Not Available Not Available No t Available olmesartan 20 mg tablet TAKE ONE TABLET BY MOUTH DAILY active Not Available Not Available No t Available olmesartan 40 mg-hydrochlor othiazide 12.5 mg tablet TAKE ONE TABLET BY MOUTH EVERY DAY active Not Available Not Available No t Available olmesartan 40 mg-hydrochlor othiazide 25 mg tablet TAKE ONE TABLET BY MOUTH EVERY DAY active Not Available Not Available No t Available Otezla 30 mg tablet active Not Available Not Available Not Available Vtama 1 % topical cream active Not Available Not Availabl e Not Available Vitals Date Recorded Body height Body mass index (BMI) Body weight Provider Name and Address Organization Details Last Updated DateTime 09/22/2024 149.86 cm 23.2 kg/m2 [address].[address] [place] [facility] [place], 09/22/2024 09:53:33 Social History None recorded. Functional Status None recorded. Mental Status None recorded. Family History Nothing Reported. Medical History No medical history recorded. Gynecological HistoryNo gynecological history recorded. Obstetrics History GPAL:G 0 P 0 0 0 0 Past Encounters Encounter ID Performer Location Encounter Start Date Encounter Closed Date Diagnosis/Indication Diagnosis SNOMED-CT Code Diagnosis ICD10 Code Diagnosis Note [id number] RENE BURROUGHS PA-C [address] [address] 09/22/2024 09:41:04 09/22/2024 10:22:36 Chronic low back pain 019207932 M54.41 G89.29 Health Concerns Section Related Observation LastModified by Organization Detai ls LastModified Time None Recorded Concern Status LastModified by Organization Details LastModified Time None Recorded Advance Directives Directive None Recorded Payers Encounter Date Sequence Insurance Name Policy Number Policy Lin Covered Member ID Lin Member ID Guarantor Name 09/22/2024 1 [employer] (MEDICARE REPLACEMENT/ ADVANTAGE - PPO) [id number] Xiomara A Makayla [id number] Xiomara Makayla 09/22/2024 2 [place] Xiomara Makayla [id number] Xiomara Makayla OBGyn Episode No OBEpisode recorded.
== END 2024-12-24 14:42 | disposition home or self-care (01) ==
LOC: HO.HKAE 14:31
PROVIDERS: PCP Internal Medicine; Visit Provider Internal Medicine Hypertension Specialist
DX: I12.9 Hypertensive chronic kidney disease with stage 1 through stage 4 chronic kidney disease, or unspecified chronic kidney disease (principal); N18.9 Chronic kidney disease, unspecified
CPT/HCPCS: 99214

== ENCOUNTER → 2024-12-24 14:29 | Outpatient (BNVA) | payer MEDICARE, MEDICAID, SELFPAY | PROVIDERS: PCP Internal Medicine; Visit Provider Internal Medicine Hypertension Specialist | DX: I12.9 Hypertensive chronic kidney disease with stage 1 through stage 4 chronic kidney disease, or unspecified chronic kidney disease (principal); N18.9 Chronic kidney disease, unspecified | CPT/HCPCS: 99212 ==

== ENCOUNTER 2025-06-03 14:47 | Outpatient (AMB) | payer MEDICARE, SELFPAY ==
[2025-06-03 14:47] VITALS: BP 134/50; PULSE 72; O2SAT 97; BMI 20.9
--- NOTE | 2025-06-03 14:47 | HO.NEPHOV_ITS ---
Vital Signs 06/03/25 14:47 Height 5 ft Weight 107 lb BMI 20.9 BP 134/50 L Blood Pressure Location Rt brachial Position Sitting Pulse 72 Pulse Source Pulse Oximeter Pulse Oximetry (%) 97 Oxygen Delivery Method Room Air Intake Visit Reasons: 5mon follow-up w/labs confirmed Automobile Salesman Required: No Accompanied by: Self / Same As Patient Allergies cefuroxime Allergy (Verified 06/03/25 14:48) Gastrointestinal Upset Medication List - Last Reconciled 06/03/25 by Jeovanny Pulido MD amlodipine 10 mg PO DAILY apremilast (Otezla) 30 mg PO BID aspirin 81 mg PO DAILY baclofen 10 mg PO DAILY carvedilol 12.5 mg PO BID faricimab-svoa (Vabysmo) 6 mg intravitreal Q4W fluticasone furoate 50 mcg/actuation inhalation BID olmesartan 20 mg PO DAILY pravastatin 20 mg PO DAILY vit C-E-zinc bq-mvnk-kak-zeax 250 mg-200 unit -12.5 mg-1 mg (ICaps AREDS2) caps PO BID HPI Comments Details: Xiomara is a pleasant elderly woman with a history of longstanding hypertension has been referred for evaluation of chronic kidney disease. Recent serum creatinine was 1.7 mg/dL with a EGFR about 27-30 mL/minute in hence this consultation. Overall blood pressure has been well controlled she is on olmesartan hydrochlorothiazide along with carvedilol 12.5 b.i.d.. She was recently seen by Cardiology echocardiogram showed mild LVH with grade 1 diastolic dysfunction. 05/07/24;Overall doing well. Feels anxious 05/21/24;Tolerating Amlodipine;BP is better 12/24/24 89-year-old female presenting with pedal edema. She reports that her ankles and legs have been swollen for some time, a condition seemingly worsened by sitting and standing for long periods. Although she does not experience pain, she notices the swelling. There's a possibility that her medication, amlodipine, is contributing to this condition, although it helps manage her essential hypertension. Her dietary sodium intake is minimal, and she does not attribute the swelling to increased salt consumption. The patient's kidney function appears stable based on her past tests, which contributes to her satisfaction with her current medical status 06/03/25 - The patient is an 89-year-old female presenting with chronic kidney disease. - Chronic Kidney Disease: Stable creatinine at 1.31 mg/dL, GFR around 40 mL/min/1.73m?. - Anemia: Hemoglobin level at 10.5 g/dL. - Hypertension: Well-controlled, no lightheadedness reported. - COVID-19: Recent infection with subsequent allergic reaction to medication. - Hydration: Prefers tea with lemon, insufficient water intake. 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 Comfortable. Neck is supple. Mucosa moist. Lungs bilateral scattered rhonchi. Heart S1-S2 heard no gallop. Abdomen soft. Extremities no edema. No involuntary movements. No myoclonus. Results Reviewed Results Reviewed: 04/01/2024 serum creatinine 1.79 EGFR 27 mL/minute Mild anemia hemoglobin 9.1. Serum lytes normal. 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 No Obstructive uropathy based on ultrasound Simple cysts- No need for further evaluation per radiology No reason to believe she is any active glomerular nephritis or interstitial disease based on the bland urine sediments Blood pressure is acceptable Creatinine is at 1.3 and eGFR of 39-40 ml/mt Probably baseline Anemia is most likely due to underlying erythropoietin deficiency versus others. Plan Keep Olmesartan 20mg & AMLODIPINE to 10 mg QD Encouraged her to stay on low-sodium diet Encouraged her to increase p.o. fluid intake. Goal is to slow the progression of the kidney disease Continue to avoid nephrotoxic agents. Follow renal function . Orders: Orders Basic Metabolic Panel 6 Months N18.9 - Chronic kidney disease, unspecified Ferritin 6 Months N18.9 - Chronic kidney disease, unspecified Comprehensive Met. Panel 6 Months N18.9 - Chronic kidney disease, unspecified IRON PROFILE 6 Months N18.9 - Chronic kidney disease, unspecified Coding Level of Care Code Est Pt Level 4 (75840) Diagnoses Essential (primary) hypertension I10 CKD (chronic kidney disease) N18.9
--- OUTSIDE RECORDS SUMMARY | 2025-06-03 20:59 | XMS_ITS | Clinical Summary ---
Author Organization [address] Address [address] [place] [address] Care Team Providers Care Set Up And Lay Out Inspector Name Role Phone Abdirahman Schafer MD Primary Care Provider [phone] Allergies No known active allergies Medications amLODIPine (NORVASC) 10 mg tablet Take 1 tablet (10 mg total) by mouth daily. 5 Active OTEZLA 30 mg tablet 5 Active aspirin 81 mg EC delayed release tablet Take 1 tablet (81 mg total) by mouth daily. Active carvediloL (COREG) 12.5 mg Immediate Release tablet take one tablet by mouth twice daily with meals Active olmesartan (BENICAR) 20 mg tablet Take 1 tablet (20 mg total) by mouth daily. 5 Active pravastatin (PRAVACHOL) 20 mg tablet Take 1 tablet (20 mg total) by mouth daily. 5 Active traMADoL (ULTRAM) 50 mg tablet Take 1 tablet (50 mg total) by mouth every 12 (twelve) hours. 5 Active vit C/E/Zn/coppr/l utein/zeaxan (PRESERVISION AREDS-2 ORAL) Take by mouth 2 (two) times a day. Active faricimab-svoa (VABYSMO) 6 mg/0.05 mL Syrg by Intravitreal route. Active naproxen (EC NAPROSYN) 500 mg EC tabletIndicati ons:Acute pain of right knee Take 1 tablet (500 mg total) by mouth 2 (two) times daily with breakfast and dinner for 7 days. 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 Adm to [facility] 03/09/22--atypical chest pain barbara--normal perfustion 67% EF monitor--shor run of multifocal tachycardia with variable conduction Intermittent mobitz I blovk Echo 06/14/22--normal study nl LA index 28 zio--05/23/22--rare PVC's and PAC's, HR 28--110, mobitz I second degree av block, no atrial fibrillation Encounters Date Type Department Care Team Description 05/03/2025 11:45 AM EDT Office Visit [facility] [place] [address] [place] [address] Abiel Stallworth PA Acute pain of right knee (Primary Dx); Sprain of right knee, unspecified ligament, initial encounter from Last 3 Months Family History Relation Name Status Comments Father Mother Social History Tobacco Use Types Packs/Day Years Used Date Smoking Tobacco: Never Smokeless Tobacco: Never Tobacco Cessation:Counseling Given: Not Answered Alcohol Use Standard Drinks/Week Comments Not Currently 0 (1 standard drink = 0.6 oz pur e alcohol) Comments Unknown Sex and Gender Information Value Date Recorded Sex Assigned at Not on file Legal Sex Female 8:19 AM EDT Gender Identity Not on file Sexual Orientation Not on file Last Filed Vital Signs Vital Sign Reading Time Taken Comments Blood Pressure 159/64 05/03/2025 11:38 AM EDT Pulse 71 05/03/2025 11:38 AM EDT Temperature 36.7 C (98.1 F) 05/03/2025 11:38 AM EDT Respiratory Rate 16 05/03/2025 11:38 AM EDT Oxygen Saturation 96% 05/03/2025 11:38 AM EDT Inhaled Oxygen Concentration - - Weight 51.7 kg (114 lb) 05/03/2025 11:38 AM EDT Height - - Body Mass Index - - Plan of Treatment Health Maintenance Due Date Last Done Comments HIV screening 1950 Tetanus adult (Td q 10,TDAP once) 1957 Lipid disorder screening 1977 Diabetes screening 1982 Pneumococcal Vaccine (50+ ye ars) (1 of 1 - PCV) 1987 Shingles vaccine (Shingrix) (1 of 2 - Shingrix (RZV) 2 Dose Standard Series) 1987 Osteoporosis screening (bone density) 2002 RSV Immunization (1 - 1-dose 75+ series) 2012 Influenza vaccine 03/13/2025 Covid-19 vaccine series ( season) 2025 Cervical cancer screening Discontinued Colon cancer screening, Colonoscopy Discontinued Meningococcal B Vaccine Aged Out No l onger eligible based on patient's age to complete this topic Meningococcal Vaccine Aged Out No christiane sabrina eligible based on patient's age to complete this topic Procedures Procedure Name Priority Date/Time Associated Diagnosis Comments SPLINT APPLICATION Routine 05/03/2025 11 :45 AM EDT Sprain of right knee, unspecified ligament, initial encounter from Last 3 Months Results * Splint Application, Bedside (05/03/2025 11:45 AM EDT) Narrative Abiel Stallworth PA - 05/03/2025 11:45 AM EDT Abiel Stallworth PA 05/03/2025 12:02 PM Splint Application, Bedside Date/Time: 05/03/2025 11:45 AM Performed by: Abiel Stallworth PA Authorized by: Abiel Stallworth PA Procedure details: Laterality: Right Location: Knee Knee: R knee Splint type: Knee immobilizer Post-procedure details: Pain: Improved Sensation: Normal Patient tolerance of procedure: Tolerated well, no immediate complications Abiel LIRA PROCEDURE/MINOR SURGICAL ORDERA BLES Final Result from Last 3 Months Insurance MEDICAID [facility] MEDICAID [place] [facility] [place] [facility] MGD Care Teams Set Up And Lay Out Inspector Relationship Specialty Start Date End Date Abdirahman Schafer MD [address] [place] [id number] PCP - General Internal Medicine 01/20/25
--- OUTSIDE RECORDS SUMMARY | 2025-06-03 20:59 | XMS_ITS | Clinical Summary ---
Author Organization [facility] Address [address] [place] [address] Care Team Providers Care Service Operations Manager Name Role Phone Abdirahman Schafer MD Primary Care Provider [phone] Allergies No known active allergies Medications Medication [...] bladder followed by Dr Rashid Adm to [facility] 03/09/22--atypical chest pain barbara--normal perfustion 67% [...] 72 03/04/2024 1:05 PM EDT Temperature 37.2 C (98.9 F) 08/28/2022 2:28 PM EST Respiratory Rate 18 10/24/2017 1:46 PM EDT [...] 1-dose 75+ series) 2012 Influenza Vaccine (#1) 2025 Hepatitis B Vaccines Aged Out No long er eligible based on patient's age to complete this topic RSV Ped < 20 months Aged Out No longe r eligible based on patient's age to complete this topic Advance Directives For more information, please contact: [phone] Documents on File Type Date Recorded Patient Technical Service Engineer Expl anation Advance Directive and Living Will 10/19/2017 1:53 PM Care Teams Service Operations Manager Relationship Specialty Start Date End Date Abdirahman Schafer MD [address] [place] [address] PCP - General Internal Medicine 08/10/17
--- OUTSIDE RECORDS SUMMARY | 2025-06-03 20:59 | XMS_ITS | Clinical Summary ---
Author Organization [facility] [place] Address [address] [place] [address] Phone Care Team Providers Care Telephonic Rn Name Role Phone Abdirahman Schafer MD Primary Care Provider [phone] Allergies No known active allergies Medications vit [...] 2 (two) times a day. 02/07/2021 Active amLODIPine (NORVASC) 10 mg tablet Take 1 tablet (10 mg total) by mouth 1 (one) time each day. 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 Adm to [facility] 03/09/22--atypical chest pain barbara--normal perfustion [...] Voiding dysfunction 08/16/2017 Retention of urine 08/16/2017 Encounters Date Type Department Care Team Description 05/12/2025 1:15 PM EDT Office Visit [facility] Cardiology - [address] [address] Wanda Enriquez MD Hypertension, unspecified type (Primary Dx) from Last 3 Months Surgical History Surgery Date Site/Laterality Comments TUBAL LIGATION PROCEDURE:TUBAL LIGATION BLADDER TUMOR EXCISION 10/24/2017 N/A PROCEDURE:BLADDER TUMOR EXCISION;COMMENT:Procedure: TRANSURETHRAL RESECTION OF BLADDER TUMOR INSTILLATION MITOMYCIN; Surgeon: Lisa Rashid MD; Location: [facility] MAIN OPERATING ROOM; Service: Urology; Laterality: N/A; [...] Not Answered Alcohol Use Standard Drinks/Week Comments No 0 (1 standard drink = 0.6 oz pur e alcohol) Comments Unknown Sex and Gender Information Value Date Recorded Sex Assigned at Not on file Legal Sex Female 10:54 AM EST Gender Identity Not on file Sexual Orientation Not on file Obstetrics History Last Filed Vital Signs Vital Sign Reading Time Taken Comments Blood Pressure 138/60 05/12/2025 1:19 PM EDT Pulse 71 05/12/2025 1:19 PM EDT Temperature - - Respiratory Rate - - Oxygen Saturation 99% 05/12/2025 1:19 PM EDT Inhaled Oxygen Concentration - - Weight 49 kg (108 lb) 05/12/2025 1:19 PM EDT Height 149.9 cm (4' 11 ) 05/12/2025 1:19 PM EDT Body Mass Index 21.81 05/12/2025 1:19 PM EDT Plan of Treatment Upcoming Encounters Date Type Department Care Team (Late st Contact Info) Description 05/18/2026 12:30 PM EDT Office Visit [facility] [place] [address] [phone] Wanda Enriquez MD [address] [place] [address] Health Maintenance Due Date Last Done Comments DTaP,Tdap,and Td Vaccines (1 - Tdap) 1956 Pneumococcal Vaccine: 50+ Years (1 of 1 - PCV) 1987 Zoster Vaccines (1 of 2) 1987 RSV Immunization Adult Patients (1 - 1-dose 75+ series) 2012 Falls Risk Assessment 07/21/2022 Medicare Annual Wellness Visit 07/21/2022 Osteoporosis Screening (Bone Density Screening) 07/21/2022 Social Influencers of Health Screening 07/21/2022 Cholesterol Screening (Lipid Panel) 01/19/2024 01/18/2019 Depression Screening 08/13/2024 COVID-19 Vaccine (4 - 2024-2 6 season) 2025 08/02/2021, 10/20/2020, 09/22/2020 Influenza Vaccine (#1) 2025 Hypertension/CHF/CAD Annual BMP Blood Test 05/12/2025 08/27/2023, 08/27/2023, 08/20/2022 HIB Vaccines Aged Out No longer eligi [...] Procedure Name Priority Date/Time Associated Diagnosis Comments ECG 12-LEAD Routine 05/12/2025 1:28 PM EDT Hypertension, unspecified type ANNUAL BMP BLOOD TEST Routine 08/27/2023 LIPID PANEL Routine 01/18/2019 from Last 3 Months or Most Recently Relevant to Health Maintenance Results * ECG 12 lead (05/12/2025 1:28 PM EDT) Narrative Wanda Enriquez MD - 05/12/2025 1:28 PM EDT Normal sinus rhythm, first-degree AV block, possible inferior infarct, nonspecific T wave abnormality in anterior leads, poor R wave progression across precordial leads Wanda Enriquez MD ECG ORDERABLES Final Re sult * Annual BMP Blood Test (08/27/2023) Annual BMP Blood Test Abstracted [facility] Provider HEALTH MAINTENANCE Final Result * (ABNORMAL) Lipid panel (01/18/2019) LDL/HDL Ratio 3 Triglycerides 129 <=150 mg/dL Cholesterol 197 <=200 mg/dL HDL 59 >=50 mg/dL LDL Cholesterol 114(A) <=100 mg/dL Blood Venous blood specimen / Unknown Historical Provider LAB BLOOD ORDERABLES Zainab l Result from Last 3 Months or Most Recently Relevant to Health Maintenance Insurance MEDICAID - [place] [employer] MEDICARE ADVANTAGE Care Teams Telephonic Rn Relationship Specialty Start Date End Date Abdirahman Schafer MD [address] [place] [phone] PCP - General Internal Medicine 08/10/17
== END 2025-06-03 14:59 | disposition home or self-care (01) ==
LOC: HO.HKAE 14:48
PROVIDERS: PCP Internal Medicine; Visit Provider Internal Medicine Hypertension Specialist
DX: I12.9 Hypertensive chronic kidney disease with stage 1 through stage 4 chronic kidney disease, or unspecified chronic kidney disease (principal); N18.9 Chronic kidney disease, unspecified
CPT/HCPCS: 99214

== ENCOUNTER → 2025-06-03 14:47 | Outpatient (BNVA) | payer MEDICARE, SELFPAY | PROVIDERS: PCP Internal Medicine; Visit Provider Internal Medicine Hypertension Specialist | DX: N18.32 Chronic kidney disease, stage 3b (principal); R60.9 Edema, unspecified; I10 Essential (primary) hypertension | CPT/HCPCS: 99212 ==